=== PATIENT | female | born 1950 | race Caucasian/White ===

== ENCOUNTER → 2016-04-25 | Outpatient (CLI) | payer MEDICARE, OTHER ==
[~2016-04-25] MED LIST: 3N1 COMMODE MC; ASPI-781 PO; BEN25 PO; CPM MC; DOCU-144 PO; DULR PR; EYEDROPS; GABAPENTIN; HYDR-3605 PO; NA P133E3 PR; NOVO3I SC; RANI150T9 PO; ULT50 PO; WALK1EAC23 MC
--- NOTE | 2016-04-25 12:30 | RADRPT ---
PROCEDURE: XR left knee. CLINICAL INDICATION: Knee pain. TECHNIQUE: AP weightbearing, lateral weight bearing and sunrise views are available for review. COMPARISON: 11/14/2015 FINDINGS: There is a total knee replacement. There is no evidence of loosening of the prosthesis. The osseous structures are normal in mineralization, architecture and alignment No acute fracture or dislocation is seen.No osseous lesions are identified. The soft tissues are unremarkable . IMPRESSION: Unremarkable total knee replacement. RPTAT: [facility] .Clive Hays MD, Date Time Electronically viewed and signed by .Clive Hays MD, on 04/25/2016 12:29 .B/
== END | disposition home or self-care (01) ==
LOC: HKI 09:22
PROVIDERS: ATTEND Orthopaedic Surgery
DX: Z47.89 Encounter for other orthopedic aftercare (principal); Z96.653 Presence of artificial knee joint, bilateral
CPT/HCPCS: 73562; G0463

== ENCOUNTER 2017-04-13 08:56 | Emergency (ER) | END 2017-04-13 10:06 | disposition home or self-care (01) ==

== ENCOUNTER 2018-04-17 14:40 | Emergency (ER) | END 2018-04-17 15:34 | disposition left against medical advice (07) ==